=== PATIENT | female | born 1955 | race Caucasian/White ===

== ENCOUNTER 2018-02-04 00:24 | Observation (INO) | payer SELFPAY ==
[2018-02-04] MEDS ORDERED: TYLENOL 500 MG TAB EXTRA STRENGTH PO ONE ×2 (00:33→00:46)
--- NOTE | 2018-02-04 00:44 | DR.GENAD ---
HPI - PCP Primary Care Physician: NONE - Complaint/Symptoms Chief Complaint Doctors Comments: Cough and fever for 2 weeks, has no doctor, smokes heavy. On no medication. Chief Complaint:: " I HAVE BEEN RUNNING A FEVER, COUGHING AND BODYACHES FOR 2 WEEKS NOW." Self Treatment fo Chief Complaint: OTC COLD MEDS - Nurses notes reviewed Nurses Notes Review: Yes - Source History Provided: Patient - Mode of Arrival Mode of Arrival: Ambulatory - Timing Onset of Chief Complaint: 01/24/18 Came on: Gradually - Duration Duration: Intermittent How lon Duration: Days - Location Location: generalized - Severity Severity: Moderate - Modifying Factors Worsens:: fever - Associated Signs and Symptoms Associated Signs and Symptoms: wet cough - Other History Other History: tobacco abuse PMH - PMH Past Medical History: No Past Surgical History: Yes Surgical History: - Family History History of Family Medical Conditions: No - Social History Does patient currently use any type of tobacco product: Yes Have you used tobacco products in the last 12 months: Yes Type of Tobacco Use: Cigarettes How many years tobacco product used: 40 Does any household member use tobacco: Yes Alcohol Use: None Do you use any recreational Drugs:: No Lives With: Family Lives Where: Home - infectious screening In the last 2 months have you had wt loss of >10#?: NO Have you had fever, night sweats or hemotysis?: No Have you traveled outside the country in the last 6 months?: No Isolation: Standard ROS - Review of Systems Constitutional: Fever Eyes: No Symptoms Reported ENTM: No Symptoms Reported Respiratoy: Non-Productive Cough Cardiovascular: No Symptoms Reported Gastrointestinal/Abdominal: Nausea Genitourinary: No Symptoms Reported Neurological: No Symptoms Reported Musculoskeletal: No Symptoms Reported Integumentary: No Symptoms Reported Hematologic/Lymphatic: No Symptoms Reported Endocrine: No Symptoms Reported Psychiatric: No Symptoms Reported All Other Systems: Reviewed and Negative PE - Vital Signs Vitals: Temperature 102.2 F Pulse Rate 94 Respiratory Rate 20 Blood Pressure 143/63 O2 Sat by Pulse Oximetry 96 - General Limitations: No Limitations General Appearance: Alert, In No Apparent Distress - Head Head Exam: Normal Inspection - Eyes Eye exam: Normal Appearance, EOMI. negative: Scleral Icterus, Conjunctival Injection - ENT ENT Exam: Normal Exam, Normal Oropharynx External Ear Exam: Normal External Inspection Mouth Exam: Normal Inspection - Neck Neck Exam: Normal Inspection, Full ROM, Trachea Midline - Chest Chest Inspection: Normal Inspection, Symmetric Chest Wall Rise. negative: Tenderness - Respiratory Respiratory Exam: negative: Normal Lung Sounds Bilat, Accessory Muscle Use, Respiratory Distress Respiratory Exam: Bilateral Decreased Breath Sounds - Cardiovascular Cardiovascular Exam: Regular Rate - Abdominal Exam Abdominal Exam: Normal Inspection - Extremities Extremities Exam: Normal Inspection, Full ROM - Back Back Exam: Normal Inspection, Full ROM - Neurologic Neurological Exam: Alert, Oriented X3, CN II-XII Intact - Psychiatric Psychiatric Exam: Depressed - Skin Skin Exam: Intact, Normal Color Course - Consultation Called: :35 Call Returned: :35 Consultation Comments: case discussed start pneumonia protocol, observation ROR - Labs Reviewed Result Diagrams: 02/04/18 00:55 02/04/18 00:55 Laboratory: WBC 15.1 X10^3/uL (3.6-10.0) H 02/04/18 00:55 RBC 3.75 X10^6/uL (3.5-5.4) 02/04/18 00:55 Hgb 11.3 g/dL (12.0-16.0) L 02/04/18 00:55 Hct 32.8 % (36.0-47.0) L 02/04/18 00:55 MCV 87.4 fL (80.0-100.0) 02/04/18 00:55 MCH 30.2 pg (27.0-34.0) 02/04/18 00:55 MCHC 34.6 g/dL (33.0-35.0) 02/04/18 00:55 RDW 13.3 % (11.6-16.5) 02/04/18 00:55 Plt Count 254 X10^3/uL (150.0-450.0) 02/04/18 00:55 MPV 8.5 fL (7.4-11.0) 02/04/18 00:55 Neut % (Auto) 82.0 % (42.0-75.0) H 02/04/18 00:55 Lymph % (Auto) 10.7 % (21.0-51.0) L 02/04/18 00:55 [place] % (Auto) 6.6 % (0.0-13.0) 02/04/18 00:55 Eos % (Auto) 0.2 % (0.9-2.9) L 02/04/18 00:55 Baso % (Auto) 0.5 % (0.2-1.0) 02/04/18 00:55 Neut # (Auto) 12.4 x10^3/uL (2.2-4.8) H 02/04/18 00:55 Lymph # (Auto) 1.6 X10^3/uL (1.3-2.9) 02/04/18 00:55 [place] # (Auto) 1.0 x10^3/uL (0.3-0.8) H 02/04/18 00:55 Eos # (Auto) 0.0 x10^3/uL (0.0-0.2) 02/04/18 00:55 Baso # (Auto) 0.1 X10^3/uL (0.0-0.1) 02/04/18 00:55 Absolute Nucleated RBC 0.0 /100WBC 02/04/18 00:55 Sodium 139 mmol/L (136-145) 02/04/18 00:55 Corrected Sodium TNP 02/04/18 00:55 Potassium 3.0 mmol/L (3.5-5.1) L* 02/04/18 00:55 Chloride 103 mmol/L (98-107) 02/04/18 00:55 Carbon Dioxide 26.7 mmol/L (21-32) 02/04/18 00:55 BUN 12 mg/dL (7-18) 02/04/18 00:55 Creatinine 0.85 mg/dL (0.55-1.02) 02/04/18 00:55 Est GFR (MDRD) Af Amer > 60 (>60) 02/04/18 00:55 Est GFR (MDRD) Non-Af > 60 (>60) 02/04/18 00:55 Glucose 107 mg/dL (65-99) H 02/04/18 00:55 Calcium 8.1 mg/dL (8.5-10.1) L 02/04/18 00:55 - XRAY XRAY Interpreted by: Self XRAY Findings: CXR: COPD changes, RLL infiltrate - Diagnosis Discharge Problem: Pneumonia Qualifiers: Pneumonia type: due to unspecified organism Laterality: right Lung location: lower lobe of lung Qualified Code(s): J18.1 - Lobar pneumonia, unspecified organism - Discharge Plan Condition: Stable - Follow ups/Referrals Follow ups/Referrals: NFD,None [Primary Care Provider] - 3 days - Instructions
[2018-02-04] MEDS ORDERED: SOLU-Medrol 125 MG VIAL IVP ONE (00:52)
[2018-02-04] MEDS ORDERED: DUONEB 0.5 MG/3 MG NEB ONE (00:52)
[2018-02-04] MEDS ORDERED: SOLU-Medrol 125 MG VIAL ONE (00:58)
[2018-02-04 01:16] LABS: BASOPHILS # (AUTO) 0.1 X10^3/uL (0.0-0.1); BASOPHILS % (AUTO) 0.5 % (0.2-1.0); EOSINOPHILS % (AUTO) 0.2 % (0.9-2.9); HEMATOCRIT 32.8 % (36.0-47.0); HEMOGLOBIN 11.3 g/dL (12.0-16.0); LYMPHOCYTES # (AUTO) 1.6 X10^3/uL (1.3-2.9); LYMPHOCYTES % (AUTO) 10.7 % (21.0-51.0); MEAN CORPUSCULAR HEMOGLOBIN 30.2 pg (27.0-34.0); MEAN CORPUSCULAR HGB CONC 34.6 g/dL (33.0-35.0); MEAN CORPUSCULAR VOLUME 87.4 fL (80.0-100.0); MEAN PLATELET VOLUME 8.5 fL (7.4-11.0); MONOCYTES % (AUTO) 6.6 % (0.0-13.0); NEUTROPHILS # (AUTO) 12.4 x10^3/uL (2.2-4.8); PLATELET COUNT 254 X10^3/uL (150.0-450.0); RED BLOOD COUNT 3.75 X10^6/uL (3.5-5.4); RED CELL DISTRIBUTION WIDTH 13.3 % (11.6-16.5); WHITE BLOOD COUNT 15.1 X10^3/uL (3.6-10.0)
[2018-02-04 01:21] LABS: BLOOD UREA NITROGEN 12 mg/dL (7-18); CALCIUM 8.1 mg/dL (8.5-10.1); CARBON DIOXIDE 26.7 mmol/L (21-32); CHLORIDE 103 mmol/L (98-107); CREATININE 0.85 mg/dL (0.55-1.02); SODIUM 139 mmol/L (136-145); eGFR BLACK RACES > 60 (>60); eGFR NON BLACK RACES > 60 (>60)
[2018-02-04] MEDS: LEVAQUIN PREMIX IV 750 MG 750 MG/150 ML BAG IV SCH ×2 (01:30→10:00)
[2018-02-04] MEDS: NS 1000 ML 1,000 ML IV SCH ×3 (01:30→22:00)
[2018-02-04] MEDS ORDERED: SALINE 3% 15 ML NEB TX ONE (01:33)
[2018-02-04] MEDS: K-DUR TAB 20 MEQ PO SCH ×3 (01:56→21:55)
--- NOTE | 2018-02-04 02:21 | RAD ---
Chest, two views Indication: Fever, cough, congestion, body aches Comparison: None Findings: Heart size is normal. Lungs are hyperinflated with coarsened interstitial markings and flat tening of the hemidiaphragms, compatible with COPD. There is moderate associated peribronchial thicke prachi. Patchy bibasilar opacities are also present. The upper lungs are clear. No significant pleural effusion or pneumothorax identified. Impression: COPD with moderate peribronchial thickening, either representing acute, chronic or acute on chronic b ronchitis. Patchy bibasilar opacities, either representing atelectasis or superimposed pneumonia. Correlation re commended. Reported By:
[2018-02-04] MEDS: MAALOX or MYLANTA PO PRN ×2 (02:53→14:07)
[2018-02-04 03:20] VITALS: BMI 19.2
[2018-02-04] MEDS: DUONEB 0.5 MG/3 MG NEB SCH ×3 (05:10→16:59)
[2018-02-04] MEDS ORDERED: POTASSIUM CHLORIDE LIQ 20 MEQ UDC PO PRN (08:25)
[2018-02-04] MEDS ORDERED: POTASSIUM CHL 60 MEQ/NS 0.45% 500 ML IV PRN (08:25)
[2018-02-04] MEDS ORDERED: K-RIDER 10 MEQ/NS 100 ML 10 MEQ/100 ML BAG IV PRN (08:25)
[2018-02-04] MEDS ORDERED: K-LYTE EFFERVESCENT PO PRN (08:25)
[2018-02-04] MEDS ORDERED: MAGNESIUM SULFATE 1 GM/100 mL PREMIX 1 GM/100 ML BAG IV PRN (08:25)
[2018-02-04] MEDS ORDERED: POTASSIUM CHL 40 MEQ/NS 0.45% 500 ML IV PRN (08:25)
[2018-02-04 08:48] LABS: BASOPHILS % (AUTO) 0.1 % (0.2-1.0); HEMATOCRIT 33.2 % (36.0-47.0); HEMOGLOBIN 11.3 g/dL (12.0-16.0); LYMPHOCYTES # (AUTO) 0.6 X10^3/uL (1.3-2.9); LYMPHOCYTES % (AUTO) 4.5 % (21.0-51.0); MEAN CORPUSCULAR HEMOGLOBIN 30.2 pg (27.0-34.0); MEAN CORPUSCULAR VOLUME 88.7 fL (80.0-100.0); MEAN PLATELET VOLUME 8.8 fL (7.4-11.0); MONOCYTES # (AUTO) 0.1 x10^3/uL (0.3-0.8); MONOCYTES % (AUTO) 1.1 % (0.0-13.0); NEUTROPHILS # (AUTO) 11.6 x10^3/uL (2.2-4.8); NEUTROPHILS % (AUTO) 94.3 % (42.0-75.0); PLATELET COUNT 242 X10^3/uL (150.0-450.0); RED BLOOD COUNT 3.74 X10^6/uL (3.5-5.4); RED CELL DISTRIBUTION WIDTH 13.1 % (11.6-16.5); WHITE BLOOD COUNT 12.3 X10^3/uL (3.6-10.0)
[2018-02-04 09:07] LABS: BAND NEUTROPHILS % 4 % (0-10); PLATELET MORPHOLOGY COMMENT NORMAL (NORMAL)
[2018-02-04 09:22] LABS: ALANINE AMINOTRANSFERASE 33 Units/L (12-78); ALBUMIN 2.5 g/dL (3.4-5.0); ALKALINE PHOSPHATASE 94 Units/L (46-116); ASPARTATE AMINO TRANSFERASE 15 Units/L (15-37); BLOOD UREA NITROGEN 12 mg/dL (7-18); CALCIUM 8.4 mg/dL (8.5-10.1); CARBON DIOXIDE 27.9 mmol/L (21-32); CHLORIDE 107 mmol/L (98-107); COR CA(FOR HYPOALB) 9.6 mg/dL (8.5-10.1); COR NA(FOR HYPERGLY) 144 mmol/L (136-145); CREATININE 0.85 mg/dL (0.55-1.02); SODIUM 142 mmol/L (136-145); TOTAL PROTEIN 6.8 g/dL (6.4-8.2); eGFR BLACK RACES > 60 (>60); eGFR NON BLACK RACES > 60 (>60)
[2018-02-04] MEDS: SOLU-Medrol 125 MG VIAL IVP SCH (10:38)
--- NOTE | 2018-02-04 12:55 | CT ---
History: Fever, headache, and leukocytosis. Study: CT sinus without contrast. Comparison: None. Technique: Multiple contiguous axial images of the sinuses without contrast. Coronal/sagittal reforma ts were obtained. Findings: Moderate to severe valentin sinus disease. The visualized mastoid air cells are clear. Mild righ t nasal septum deviation. There is obstruction of the ostiomeatal units and left frontoethmoidal rece ss. The bilateral sphenoethmoidal recesses and right frontal ethmoidal recess appear patent. The orbi ts are unremarkable. The visualized bones and surrounding soft tissues are unremarkable. Impression: Sinus disease as above. Reported By:
[2018-02-04] MEDS ORDERED: ZOFRAN INJ 4 MG VIAL IVP PRN (15:03)
[2018-02-04] MEDS ORDERED: TUMS PO ONE (22:13)
[2018-02-05] MEDS: DUONEB 0.5 MG/3 MG NEB SCH ×4 (00:45→17:13)
[2018-02-05 05:23] LABS: BASOPHILS % (AUTO) 0.1 % (0.2-1.0); HEMATOCRIT 31.6 % (36.0-47.0); HEMOGLOBIN 10.6 g/dL (12.0-16.0); LYMPHOCYTES # (AUTO) 1.3 X10^3/uL (1.3-2.9); LYMPHOCYTES % (AUTO) 7.8 % (21.0-51.0); MEAN CORPUSCULAR HEMOGLOBIN 30.1 pg (27.0-34.0); MEAN CORPUSCULAR HGB CONC 33.5 g/dL (33.0-35.0); MEAN CORPUSCULAR VOLUME 89.8 fL (80.0-100.0); MEAN PLATELET VOLUME 9.2 fL (7.4-11.0); MONOCYTES # (AUTO) 0.6 x10^3/uL (0.3-0.8); MONOCYTES % (AUTO) 3.5 % (0.0-13.0); NEUTROPHILS # (AUTO) 14.7 x10^3/uL (2.2-4.8); NEUTROPHILS % (AUTO) 88.6 % (42.0-75.0); PLATELET COUNT 250 X10^3/uL (150.0-450.0); RED BLOOD COUNT 3.51 X10^6/uL (3.5-5.4); RED CELL DISTRIBUTION WIDTH 13.3 % (11.6-16.5); WHITE BLOOD COUNT 16.7 X10^3/uL (3.6-10.0)
[2018-02-05 05:33] LABS: ALANINE AMINOTRANSFERASE 35 Units/L (12-78); ALBUMIN 2.4 g/dL (3.4-5.0); ALKALINE PHOSPHATASE 103 Units/L (46-116); ASPARTATE AMINO TRANSFERASE 20 Units/L (15-37); BLOOD UREA NITROGEN 22 mg/dL (7-18); CALCIUM 8.9 mg/dL (8.5-10.1); CARBON DIOXIDE 27.6 mmol/L (21-32); CHLORIDE 108 mmol/L (98-107); COR CA(FOR HYPOALB) 10.2 mg/dL (8.5-10.1); COR NA(FOR HYPERGLY) 146 mmol/L (136-145); CREATININE 0.95 mg/dL (0.55-1.02); SODIUM 145 mmol/L (136-145); TOTAL PROTEIN 6.6 g/dL (6.4-8.2); eGFR BLACK RACES > 60 (>60); eGFR NON BLACK RACES > 60 (>60)
[2018-02-05] MEDS: NS 1000 ML 1,000 ML IV SCH ×3 (06:08→23:29)
[2018-02-05] MEDS: LEVAQUIN PREMIX IV 750 MG 750 MG/150 ML BAG IV SCH (10:22)
[2018-02-05] MEDS: K-DUR TAB 20 MEQ PO SCH ×2 (10:22→21:36)
[2018-02-05] MEDS: SOLU-Medrol 125 MG VIAL IVP SCH (10:22)
[2018-02-05] MEDS ORDERED: ASTELIN NASAL SPRAY ENOSTRIL ONE (11:15)
[2018-02-05] MEDS: ASTELIN NASAL SPRAY ENOSTRIL SCH ×3 (11:24→21:36)
[2018-02-05] MEDS: TYLENOL 325 MG TAB PO PRN ×2 (11:26→23:30)
[2018-02-05] MEDS: FLONASE NASAL SPRAY ENOSTRIL SCH ×2 (11:26→21:37)
[2018-02-05] MEDS: MAALOX or MYLANTA PO PRN ×2 (15:28→21:36)
[2018-02-06] MEDS: DUONEB 0.5 MG/3 MG NEB SCH ×4 (00:59→16:36)
[2018-02-06] MEDS ORDERED: AYR NASAL DROPS PRN (04:56)
[2018-02-06 05:32] LABS: BASOPHILS % (AUTO) 0.1 % (0.2-1.0); HEMATOCRIT 33.3 % (36.0-47.0); HEMOGLOBIN 11.2 g/dL (12.0-16.0); LYMPHOCYTES # (AUTO) 2.1 X10^3/uL (1.3-2.9); LYMPHOCYTES % (AUTO) 13.5 % (21.0-51.0); MEAN CORPUSCULAR HEMOGLOBIN 30.4 pg (27.0-34.0); MEAN CORPUSCULAR HGB CONC 33.7 g/dL (33.0-35.0); MEAN CORPUSCULAR VOLUME 90.2 fL (80.0-100.0); MEAN PLATELET VOLUME 8.8 fL (7.4-11.0); MONOCYTES # (AUTO) 0.7 x10^3/uL (0.3-0.8); MONOCYTES % (AUTO) 4.4 % (0.0-13.0); NEUTROPHILS # (AUTO) 12.7 x10^3/uL (2.2-4.8); PLATELET COUNT 298 X10^3/uL (150.0-450.0); RED BLOOD COUNT 3.69 X10^6/uL (3.5-5.4); RED CELL DISTRIBUTION WIDTH 13.6 % (11.6-16.5); WHITE BLOOD COUNT 15.5 X10^3/uL (3.6-10.0)
[2018-02-06 05:53] LABS: ALANINE AMINOTRANSFERASE 103 Units/L (12-78); ALBUMIN 2.4 g/dL (3.4-5.0); ALKALINE PHOSPHATASE 114 Units/L (46-116); ASPARTATE AMINO TRANSFERASE 102 Units/L (15-37); BLOOD UREA NITROGEN 24 mg/dL (7-18); CALCIUM 8.8 mg/dL (8.5-10.1); CARBON DIOXIDE 23.9 mmol/L (21-32); CHLORIDE 112 mmol/L (98-107); COR CA(FOR HYPOALB) 10.1 mg/dL (8.5-10.1); SODIUM 146 mmol/L (136-145); TOTAL PROTEIN 6.5 g/dL (6.4-8.2); eGFR BLACK RACES > 60 (>60); eGFR NON BLACK RACES 60 (>60)
--- NOTE | 2018-02-06 08:14 | RAD ---
Examination: Portable AP chest History: SOB Comparison reference 02/04/2018 Findings: Continued normal heart size. Increasing central vascular prominence and increasing bibasal airspace disease and pleural reaction. No pneumothorax seen. Impression: Interval progression of bibasal infiltrates and fluid most consistent with pneumonia. Sup erimposed CHF may be present; correlate clinically. Reported By:
[2018-02-06] MEDS: FLONASE NASAL SPRAY ENOSTRIL SCH ×2 (09:29→21:02)
[2018-02-06] MEDS: SOLU-Medrol 125 MG VIAL IVP SCH (09:29)
[2018-02-06] MEDS: K-DUR TAB 20 MEQ PO SCH ×2 (09:29→21:03)
[2018-02-06] MEDS: LEVAQUIN PREMIX IV 750 MG 750 MG/150 ML BAG IV SCH (09:29)
[2018-02-06] MEDS: ASTELIN NASAL SPRAY ENOSTRIL SCH ×2 (09:29→21:02)
[2018-02-06] MEDS: TYLENOL 325 MG TAB PO PRN ×2 (14:17→23:22)
[2018-02-06] MEDS: NS 1000 ML 1,000 ML IV SCH ×2 (14:38→19:53)
[2018-02-06] MEDS ORDERED: COLACE CAP 100 MG PO SCH (21:00)
[2018-02-06] MEDS: MILK OF MAGNESIA PO SCH (21:03)
--- NOTE | 2018-02-06 22:24 | PCM.PROG ---
Progress Note - Progress Note for Day of Date: 02/05/18 - Subjective Subjective: IS BEING TREATED FOR PNEUMONIA. TODAY, SHE IS ALERT AND ORIENTED, LYING IN BED ON MORNING ROUNDS. SHE CONTINUES WITH COMPLAINTS OF SHORTNESS OF BREATH AND PRODUCTIVE COUGH. ON EXAMINATION, BILATERAL LUNGS ARE NOTED WITH SCATTERED WHEEZING AND RHONCHI THROUGHOUT. HER VITALS THIS MORNING ARE 98.3-64-20-93%-116/58. ABNORMAL LAB VALUES INCLUDE THE FOLLOWING: WBC INCREASED FROM 12.3 TO 16.7, HGB 10.6, HCT 31.6, CHLORIDE 108, BUN 22, GLUCOSE 146, TOTAL BILI 0.10, ALBUMIN 2.4. SPUTUM CULTURE REPORTS GROWTH OF KLEBSIELLA PEUMONIAE. IT IS SENSITIVE TO THE LEVAQUIN THAT SHE IS CURRENTLY RECEIVING. SHE IS ALSO RECEIVING RESPIRATORY TREATMENTS AND SUPPLEMMENTAL OXYGEN. WE WILL CONTINUE WITH CURRENT PLAN OF CARE TODAY. WE PLAN TO FOLLOW UP WITH AM LABS AND CONTINUE TO MONITOR PATIENT. - Past Medical Family Social History Past Med/Fam/Surg Hx: No changes since H&P Allergies: Allergies amoxicillin Adverse Reaction (Verified 02/04/18 00:30) erythromycin base [From Erythrocin] Adverse Reaction (Verified 02/04/18 00:30) - Review of Systems ROS: No change since H&P - Vital Signs and I&O's Vital Signs: Temperature 98.3 F Pulse Rate [Right Brachial] 63 Pulse Rate 71 Respiratory Rate 20 Blood Pressure [Right Arm] 152/70 Blood Pressure 143/63 O2 Sat by Pulse Oximetry 93 Intake and Output: Intake & Output 02/04/18 02/05/18 02/06/18 02/07/18 11:59 11:59 11:59 11:59 Intake Total 225 2200 1634 240 Output Total 1000 950 400 Balance 225 1200 684 -160 - Physical Exam Oriented: Normal Eyes: Normal Ear: Normal Nose: Normal Throat: Normal Respiratory: Generalized, Wheezes, Rhonchi Cardiovascular: Normal : Normal Auscultation: Bowel Sounds: Normal Palpation: Normal Tenderness: Normal Skin: Normal Musculoskeletal: Normal Psychiatric: Normal Mood Description: Calm Speech Pattern: Clear, Appropriate - Laboratory and Diagnostics Result Diagrams: 02/06/18 05:00 02/06/18 05:00 Labs: 02/04/18 02:31 Sputum - Expectorated Sputum Sputum Culture - Final Klebsiella Pneumoniae 02/04/18 02:31 Sputum - Expectorated Sputum - Final 02/04/18 01:00 Blood Blood Culture - Preliminary 02/04/18 00:55 Blood Blood Culture - Preliminary Laboratory WBC 15.5 X10^3/uL (3.6-10.0) H 02/06/18 05:00 RBC 3.69 X10^6/uL (3.5-5.4) 02/06/18 05:00 Hgb 11.2 g/dL (12.0-16.0) L 02/06/18 05:00 Hct 33.3 % (36.0-47.0) L 02/06/18 05:00 MCV 90.2 fL (80.0-100.0) 02/06/18 05:00 MCH 30.4 pg (27.0-34.0) 02/06/18 05:00 MCHC 33.7 g/dL (33.0-35.0) 02/06/18 05:00 RDW 13.6 % (11.6-16.5) 02/06/18 05:00 Plt Count 298 X10^3/uL (150.0-450.0) 02/06/18 05:00 Plt Count Comment Adequate (ADEQUATE) 02/04/18 08:15 MPV 8.8 fL (7.4-11.0) 02/06/18 05:00 Neut % (Auto) 82.0 % (42.0-75.0) H 02/06/18 05:00 Lymph % (Auto) 13.5 % (21.0-51.0) L 02/06/18 05:00 [place] % (Auto) 4.4 % (0.0-13.0) 02/06/18 05:00 Eos % (Auto) 0.0 % (0.9-2.9) L 02/06/18 05:00 Baso % (Auto) 0.1 % (0.2-1.0) L 02/06/18 05:00 Neut # (Auto) 12.7 x10^3/uL (2.2-4.8) H 02/06/18 05:00 Lymph # (Auto) 2.1 X10^3/uL (1.3-2.9) 02/06/18 05:00 [place] # (Auto) 0.7 x10^3/uL (0.3-0.8) 02/06/18 05:00 Eos # (Auto) 0.0 x10^3/uL (0.0-0.2) 02/06/18 05:00 Baso # (Auto) 0.0 X10^3/uL (0.0-0.1) 02/06/18 05:00 Absolute Nucleated RBC 0.0 /100WBC 02/06/18 05:00 Total Counted 100 02/04/18 08:15 Neutrophils % (Manual) 90 % (39-76) H 02/04/18 08:15 Band Neutrophils % 4 % (0-10) 02/04/18 08:15 Lymphocytes % (Manual) 4 % (13-43) L 02/04/18 08:15 Monocytes % (Manual) 2 % (4-9) L 02/04/18 08:15 Plt Morphology Comment Normal (NORMAL) 02/04/18 08:15 RBC Morphology Normal (NORMAL) 02/04/18 08:15 Sodium 146 mmol/L (136-145) H 02/06/18 05:00 Corrected Sodium TNP 02/06/18 05:00 Potassium 4.2 mmol/L (3.5-5.1) 02/06/18 05:00 Chloride 112 mmol/L (98-107) H 02/06/18 05:00 Carbon Dioxide 23.9 mmol/L (21-32) 02/06/18 05:00 BUN 24 mg/dL (7-18) H 02/06/18 05:00 Creatinine 1.00 mg/dL (0.55-1.02) 02/06/18 05:00 Est GFR (MDRD) Af Amer > 60 (>60) 02/06/18 05:00 Est GFR (MDRD) Non-Af 60 (>60) 02/06/18 05:00 Glucose 102 mg/dL (65-99) H 02/06/18 05:00 Calcium 8.8 mg/dL (8.5-10.1) 02/06/18 05:00 Corrected Calcium 10.1 mg/dL (8.5-10.1) 02/06/18 05:00 Magnesium 2.1 mg/dL (1.7-2.9) 02/04/18 08:15 Total Bilirubin 0.20 mg/dL (0.2-1.0) 02/06/18 05:00 AST 102 Units/L (15-37) H 02/06/18 05:00 ALT 103 Units/L (12-78) H 02/06/18 05:00 Alkaline Phosphatase 114 Units/L (46-116) 02/06/18 05:00 Total Protein 6.5 g/dL (6.4-8.2) 02/06/18 05:00 Albumin 2.4 g/dL (3.4-5.0) L 02/06/18 05:00 Globulin 4.1 g/dL (2.5-4.5) 02/06/18 05:00 Albumin/Globulin Ratio 0.6 Ratio (1.1-2.1) L 02/06/18 05:00
--- NOTE | 2018-02-06 23:01 | PCM.PROG ---
Progress Note - Progress Note for Day of Date: 02/06/18 - Subjective Subjective: IS BEING TREATED FOR PNEUMONIA. TODAY, SHE IS ALERT AND ORIENTED, LYING IN BED ON MORNING ROUNDS. SHE CONTINUES WITH COMPLAINTS OF SHORTNESS OF BREATH AND PRODUCTIVE COUGH. ON EXAMINATION, BILATERAL LUNGS ARE NOTED WITH SCATTERED WHEEZING AND RHONCHI THROUGHOUT. HER VITALS THIS MORNING ARE 97.7-64-20-96%-164/71. ABNORMAL LAB VALUES INCLUDE THE FOLLOWING: WBC DECREASED FROM 16.7 TO 15.5, HGB 11.2, HCT 33.3, SODIUM 146, CHLORIDE 112, BUN 24, GLUCOSE 102, AST 102, ALT 103, ALBUMIN 2.4. SHE CONTINUES TO RECEIVE LEVAQUIN FOR GROWTH OF KLEBSIELLA PNEUMONIAE. SHE IS ALSO RECEIVING RESPIRATORY TREATMENTS AND SUPPLEMMENTAL OXYGEN. WE WILL CONTINUE WITH CURRENT PLAN OF CARE TODAY. WE PLAN TO FOLLOW UP WITH AM LABS AND CONTINUE TO MONITOR PATIENT. - Past Medical Family Social History Past Med/Fam/Surg Hx: No changes since H&P Allergies: Allergies amoxicillin Adverse Reaction (Verified 02/04/18 00:30) erythromycin base [From Erythrocin] Adverse Reaction (Verified 02/04/18 00:30) - Review of Systems ROS: No change since H&P - Vital Signs and I&O's Vital Signs: Temperature 98.3 F Pulse Rate [Right Brachial] 63 Pulse Rate 71 Respiratory Rate 20 Blood Pressure [Right Arm] 152/70 Blood Pressure 143/63 O2 Sat by Pulse Oximetry 93 Intake and Output: Intake & Output 02/04/18 02/05/18 02/06/18 02/07/18 11:59 11:59 11:59 11:59 Intake Total 225 2200 1634 500 Output Total 1000 950 400 Balance 225 1200 684 100 - Physical Exam Oriented: Normal Eyes: Normal Ear: Normal Nose: Normal Throat: Normal Respiratory: Generalized, Wheezes, Rhonchi Cardiovascular: Normal : Normal Auscultation: Bowel Sounds: Normal Palpation: Normal Tenderness: Normal Skin: Normal Musculoskeletal: Normal Psychiatric: Normal Mood Description: Calm Speech Pattern: Clear, Appropriate - Laboratory and Diagnostics Result Diagrams: 02/06/18 05:00 02/06/18 05:00 Labs: 02/04/18 02:31 Sputum - Expectorated Sputum Sputum Culture - Final Klebsiella Pneumoniae 02/04/18 02:31 Sputum - Expectorated Sputum - Final 02/04/18 01:00 Blood Blood Culture - Preliminary 02/04/18 00:55 Blood Blood Culture - Preliminary Laboratory WBC 15.5 X10^3/uL (3.6-10.0) H 02/06/18 05:00 RBC 3.69 X10^6/uL (3.5-5.4) 02/06/18 05:00 Hgb 11.2 g/dL (12.0-16.0) L 02/06/18 05:00 Hct 33.3 % (36.0-47.0) L 02/06/18 05:00 MCV 90.2 fL (80.0-100.0) 02/06/18 05:00 MCH 30.4 pg (27.0-34.0) 02/06/18 05:00 MCHC 33.7 g/dL (33.0-35.0) 02/06/18 05:00 RDW 13.6 % (11.6-16.5) 02/06/18 05:00 Plt Count 298 X10^3/uL (150.0-450.0) 02/06/18 05:00 Plt Count Comment Adequate (ADEQUATE) 02/04/18 08:15 MPV 8.8 fL (7.4-11.0) 02/06/18 05:00 Neut % (Auto) 82.0 % (42.0-75.0) H 02/06/18 05:00 Lymph % (Auto) 13.5 % (21.0-51.0) L 02/06/18 05:00 [place] % (Auto) 4.4 % (0.0-13.0) 02/06/18 05:00 Eos % (Auto) 0.0 % (0.9-2.9) L 02/06/18 05:00 Baso % (Auto) 0.1 % (0.2-1.0) L 02/06/18 05:00 Neut # (Auto) 12.7 x10^3/uL (2.2-4.8) H 02/06/18 05:00 Lymph # (Auto) 2.1 X10^3/uL (1.3-2.9) 02/06/18 05:00 [place] # (Auto) 0.7 x10^3/uL (0.3-0.8) 02/06/18 05:00 Eos # (Auto) 0.0 x10^3/uL (0.0-0.2) 02/06/18 05:00 Baso # (Auto) 0.0 X10^3/uL (0.0-0.1) 02/06/18 05:00 Absolute Nucleated RBC 0.0 /100WBC 02/06/18 05:00 Total Counted 100 02/04/18 08:15 Neutrophils % (Manual) 90 % (39-76) H 02/04/18 08:15 Band Neutrophils % 4 % (0-10) 02/04/18 08:15 Lymphocytes % (Manual) 4 % (13-43) L 02/04/18 08:15 Monocytes % (Manual) 2 % (4-9) L 02/04/18 08:15 Plt Morphology Comment Normal (NORMAL) 02/04/18 08:15 RBC Morphology Normal (NORMAL) 02/04/18 08:15 Sodium 146 mmol/L (136-145) H 02/06/18 05:00 Corrected Sodium TNP 02/06/18 05:00 Potassium 4.2 mmol/L (3.5-5.1) 02/06/18 05:00 Chloride 112 mmol/L (98-107) H 02/06/18 05:00 Carbon Dioxide 23.9 mmol/L (21-32) 02/06/18 05:00 BUN 24 mg/dL (7-18) H 02/06/18 05:00 Creatinine 1.00 mg/dL (0.55-1.02) 02/06/18 05:00 Est GFR (MDRD) Af Amer > 60 (>60) 02/06/18 05:00 Est GFR (MDRD) Non-Af 60 (>60) 02/06/18 05:00 Glucose 102 mg/dL (65-99) H 02/06/18 05:00 Calcium 8.8 mg/dL (8.5-10.1) 02/06/18 05:00 Corrected Calcium 10.1 mg/dL (8.5-10.1) 02/06/18 05:00 Magnesium 2.1 mg/dL (1.7-2.9) 02/04/18 08:15 Total Bilirubin 0.20 mg/dL (0.2-1.0) 02/06/18 05:00 AST 102 Units/L (15-37) H 02/06/18 05:00 ALT 103 Units/L (12-78) H 02/06/18 05:00 Alkaline Phosphatase 114 Units/L (46-116) 02/06/18 05:00 Total Protein 6.5 g/dL (6.4-8.2) 02/06/18 05:00 Albumin 2.4 g/dL (3.4-5.0) L 02/06/18 05:00 Globulin 4.1 g/dL (2.5-4.5) 02/06/18 05:00 Albumin/Globulin Ratio 0.6 Ratio (1.1-2.1) L 02/06/18 05:00
[2018-02-07] MEDS: DUONEB 0.5 MG/3 MG NEB SCH ×4 (00:06→12:21)
[2018-02-07] MEDS: NS 1000 ML 1,000 ML IV SCH (00:37)
[2018-02-07 06:21] LABS: BASOPHILS # (AUTO) 0.1 X10^3/uL (0.0-0.1); BASOPHILS % (AUTO) 0.5 % (0.2-1.0); HEMATOCRIT 33.1 % (36.0-47.0); HEMOGLOBIN 11.4 g/dL (12.0-16.0); LYMPHOCYTES # (AUTO) 2.3 X10^3/uL (1.3-2.9); LYMPHOCYTES % (AUTO) 17.6 % (21.0-51.0); MEAN CORPUSCULAR HEMOGLOBIN 30.7 pg (27.0-34.0); MEAN CORPUSCULAR HGB CONC 34.5 g/dL (33.0-35.0); MEAN CORPUSCULAR VOLUME 88.9 fL (80.0-100.0); MEAN PLATELET VOLUME 8.9 fL (7.4-11.0); MONOCYTES # (AUTO) 0.6 x10^3/uL (0.3-0.8); MONOCYTES % (AUTO) 4.8 % (0.0-13.0); NEUTROPHILS # (AUTO) 10.1 x10^3/uL (2.2-4.8); NEUTROPHILS % (AUTO) 77.1 % (42.0-75.0); PLATELET COUNT 301 X10^3/uL (150.0-450.0); RED BLOOD COUNT 3.72 X10^6/uL (3.5-5.4); RED CELL DISTRIBUTION WIDTH 13.6 % (11.6-16.5); WHITE BLOOD COUNT 13.1 X10^3/uL (3.6-10.0)
[2018-02-07 06:52] LABS: ALANINE AMINOTRANSFERASE 131 Units/L (12-78); ALBUMIN 2.4 g/dL (3.4-5.0); ALKALINE PHOSPHATASE 107 Units/L (46-116); ASPARTATE AMINO TRANSFERASE 56 Units/L (15-37); BLOOD UREA NITROGEN 24 mg/dL (7-18); CALCIUM 8.8 mg/dL (8.5-10.1); CARBON DIOXIDE 27.3 mmol/L (21-32); CHLORIDE 107 mmol/L (98-107); CHOL/HDL RATIO 3.2 (0.0-5.0); CHOLESTEROL 116 mg/dL (0-200); COR CA(FOR HYPOALB) 10.1 mg/dL (8.5-10.1); CREATININE 0.88 mg/dL (0.55-1.02); HDL CHOLESTEROL 36 mg/dL (40-60); SODIUM 142 mmol/L (136-145); TOTAL PROTEIN 6.4 g/dL (6.4-8.2); TRIGLYCERIDES 86 mg/dL (0-150); eGFR BLACK RACES > 60 (>60); eGFR NON BLACK RACES > 60 (>60)
--- NOTE | 2018-02-07 07:23 | RAD ---
History: 02/06/2018 Study: Portable AP erect chest labeled 6:43 a.m. shows the cardiac silhouette to be at upper limits n ormal for the technique. The pulmonary vasculature is congested but to a slightly lesser degree than on the previous study. There is some opacity in the right and left base which may be due to consolida tion and/or fluid.. Blunting of the costophrenic angles is seen compatible with fluid. Impression: 1. Slight improvement in fluid status. 2. Bibasilar opacity likely representing consolidation and fluid. Reported By:
[2018-02-07] MEDS: LEVAQUIN PREMIX IV 750 MG 750 MG/150 ML BAG IV SCH (09:23)
[2018-02-07] MEDS: ASTELIN NASAL SPRAY ENOSTRIL SCH (09:23)
[2018-02-07] MEDS: FLONASE NASAL SPRAY ENOSTRIL SCH (09:23)
[2018-02-07] MEDS: K-DUR TAB 20 MEQ PO SCH (10:15)
[2018-02-07] MEDS: MILK OF MAGNESIA PO SCH (10:15)
--- NOTE | 2018-02-07 11:20 | US ---
RIGHT UPPER QUADRANT ULTRASOUND HISTORY: Elevated LFTs Comparison: None Technique: Multiple monzon scale and color flow Doppler images of the right upper quadrant were obtaine d. Findings: Overall study is limited by overlying bowel gas. The liver is normal in echotexture and size. No foc al mass. No intrahepatic bile duct dilatation. No gallstones. No pericholecystic fluid or gallbladder wall thickening. The technologist did not report a positive sonographic Blunt's sign. The common bi le duct measures 4 mm. IMPRESSION: 1. Negative right upper quadrant ultrasound. Reported By:
[2018-02-07 12:10] VITALS: BP 134/63
[2018-02-08 20:59] LABS: HEPATITIS A ANTIBODY IGM Negative (Negative)
[2018-02-09 06:58] LABS: HEPATITIS B CORE IGM Negative (Negative); HEPATITIS B SURFACE ANTIGEN Negative (Negative)
== END 2018-02-07 13:23 | disposition home or self-care (01) ==
LOC: ER 00:24 → MED/SURG 01:38
PROVIDERS: ADMIT Obstetrics & Gynecology Obstetrics; ATTEND Obstetrics & Gynecology Obstetrics
DX: J18.1 Lobar pneumonia, unspecified organism (principal); E87.6 Hypokalemia; D64.89 Other specified anemias; D72.828 Other elevated white blood cell count; J32.8 Other chronic sinusitis; B95.3 Streptococcus pneumoniae as the cause of diseases classified elsewhere
CPT/HCPCS: 36415; 70486; 71045; 71046; 76705; 80048; 80053; 80061; 80074; 83735; 85025; 87040; 87070; 87077; 87186; 87205; 94640; 94760; 96365; 96374; 99282; 99284; A4218; A4222; G0378; J1956; J2405; J2930; J7620